=== PATIENT | male | born 1980 | race American Indian/Alaskan Native ===

== ENCOUNTER 2017-01-30 09:09 | Emergency (ER) | payer SELFPAY ==
[2017-01-30 09:34] VITALS: BP 122/77
== END 2017-01-30 09:29 | disposition left against medical advice (07) ==
LOC: ED 09:09
DX: R51 Headache (principal); R42 Dizziness and giddiness; Z53.21 Procedure and treatment not carried out due to patient leaving prior to being seen by health care provider

== ENCOUNTER 2017-01-30 13:33 | Emergency (ER) | payer SELFPAY ==
[2017-01-30 15:11] VITALS: BP 127/80
== END 2017-01-31 02:05 | disposition left against medical advice (07) ==
LOC: ED 13:33
DX: G43.909 Migraine, unspecified, not intractable, without status migrainosus (principal); Z53.21 Procedure and treatment not carried out due to patient leaving prior to being seen by health care provider

== ENCOUNTER 2017-02-06 03:32 | Emergency (ER) | payer SELFPAY ==
[2017-02-06] MEDS ORDERED: NACL 0.9% 1000 ML 1,000 ML ONE (04:02)
[2017-02-06] MEDS ORDERED: REGLAN ONE (04:02)
[2017-02-06] MEDS ORDERED: REGLAN IV ONE (04:11)
[2017-02-06] MEDS ORDERED: NACL 0.9% 500 ML 500 ML IV ONE (04:11)
--- NOTE | 2017-02-06 04:15 | Cat Scan Report ---
FINAL REPORT PROCEDURE: CT HEAD/BRAIN WO CON TECHNIQUE: Computerized tomography of the head was performed without contrast material. HISTORY: syncope 01:00, headache dizzy x 2 hrs COMPARISON: No prior studies are available for comparison. FINDINGS: Skull and scalp: Normal. Paranasal sinuses: Normal. Ventricles and subarachnoid spaces: Normal. Cerebrum: No evidence of hemorrhage, acute infarction or mass . Cerebellum and brainstem: No evidence of hemorrhage, acute infarction or mass. Vasculature: Normal. Comments: None. IMPRESSION: There is no evidence of an acute intracranial process
[2017-02-06] MEDS ORDERED: BENADRYL ONE (04:18)
[2017-02-06] MEDS ORDERED: BENADRYL IV ONE (04:27)
[2017-02-06 04:28] LABS: Basophils % (Auto) 0.8 % (0.0-1.8); Eosinophils % (Auto) 1.4 % (0.0-4.3); Hematocrit 42.9 % (35.5-45.6); Hemoglobin 14.4 gm/dl (11.8-15.2); Mean Corpuscular HGB Conc 34 % (32-34); Mean Corpuscular Hemoglobin 32 pg (28-32); Mean Corpuscular Volume 94 fl (84-94); Platelet Count 277 K/mm3 (140-440); Red Blood Count 4.56 M/mm3 (3.65-5.03); Red Cell Distribution Width 13.6 % (13.2-15.2)
[2017-02-06 04:40] LABS: INR 0.9 (0.87-1.13)
[2017-02-06 04:41] LABS: Partial Thromboplastin Time 25.9 Sec. (24.2-36.6)
[2017-02-06 05:15] LABS: Anion Gap 14 mmol/L; Blood Urea Nitrogen 7 mg/dL (9-20); Calcium 8.8 mg/dL (8.4-10.2); Carbon Dioxide 28 mmol/L (22-30); Glucose 102 mg/dL (75-100); Sodium 138 mmol/L (137-145)
--- NOTE | 2017-02-06 06:28 | Emergency Department Report ---
ED General Adult HPI - General Chief complaint: Syncope Stated complaint: HEADACHES, DIZZINESS, FAINT, Time Seen by Provider: 02/06/17 06:25 Source: patient Mode of arrival: Ambulatory Limitations: No Limitations - History of Present Illness Initial comments: the patient states he has headaches daily for years without neurological evaluation. He goes to EDs. His last visit was 01/30/17 but he did not wait to be seen. His headache today is not unusual. It is left-sided. It is aching. It is not associated with any neurological change photophobia fever or chills or neck stiffness. He is resting comfortably but would like something else for his headache. -: Gradual Location: head Radiation: non-radiation Severity scale (0 -10): 7 Quality: aching Consistency: intermittent Improves with: none Worsens with: none Associated Symptoms: denies other symptoms Treatments Prior to Arrival: none - Related Data Previous Rx's Medication Instructions Recorded Last Taken Type Ketorolac [Toradol] 10 mg PO Q6H PRN #20 tablet 05/02/16 Unknown Rx oxyCODONE [Roxicodone TAB] 5 mg PO Q6HR PRN #6 tablet 05/02/16 Unknown Rx traMADol [Ultram 50 MG tab] 50 mg PO Q6HR PRN #20 tablet 01/15/17 Unknown Rx Butalb/Acetaminophen/Caffeine 1 cap PO Q6HR PRN #14 cap 02/06/17 Unknown Rx [Fioricet 50-300-40 mg CAP] Allergies Allergy/AdvReac Type Severity Reaction Status Date / Time No Known Allergies Allergy Unverified 05/02/16 16:01 ED Review of Systems ROS: Stated complaint: HEADACHES, DIZZINESS, FAINT, Other details as noted in HPI Constitutional: denies: chills, fever Eyes: denies: eye pain, eye discharge, vision change ENT: denies: ear pain, throat pain Respiratory: denies: cough, shortness of breath, wheezing Cardiovascular: denies: chest pain, palpitations Endocrine: no symptoms reported Gastrointestinal: denies: abdominal pain, nausea, diarrhea Genitourinary: denies: urgency, dysuria Musculoskeletal: denies: back pain, joint swelling, arthralgia Skin: denies: rash, lesions Neurological: headache. denies: weakness, paresthesias Psychiatric: denies: anxiety, depression Hematological/Lymphatic: denies: easy bleeding, easy bruising ED Past Medical Hx - Past Medical History Previous Medical History?: Yes Additional medical history: ulcers "a long time ago". multiple shoulder dislocations - Surgical History Past Surgical History?: No - Social History Smoking Status: Current Every Day Smoker Substance Use Type: Alcohol - Medications Home Medications: Home Medications Medication Instructions Recorded Confirmed Last Taken Type Ketorolac [Toradol] 10 mg PO Q6H PRN #20 tablet 05/02/16 Unknown Rx oxyCODONE [Roxicodone TAB] 5 mg PO Q6HR PRN #6 tablet 05/02/16 Unknown Rx traMADol [Ultram 50 MG tab] 50 mg PO Q6HR PRN #20 tablet 01/15/17 Unknown Rx Butalb/Acetaminophen/Caffeine 1 cap PO Q6HR PRN #14 cap 02/06/17 Unknown Rx [Fioricet 50-300-40 mg CAP] ED Physical Exam - General Limitations: No Limitations General appearance: alert, in no apparent distress - Head Head exam: Present: atraumatic, normocephalic - Eye Eye exam: Present: normal appearance, PERRL. Absent: scleral icterus - ENT ENT exam: Present: normal exam, mucous membranes moist - Neck Neck exam: Present: normal inspection. Absent: tenderness, meningismus - Respiratory Respiratory exam: Present: normal lung sounds bilaterally. Absent: respiratory distress - Cardiovascular Cardiovascular Exam: Present: regular rate, normal rhythm. Absent: systolic murmur, diastolic murmur, rubs, gallop - GI/Abdominal GI/Abdominal exam: Present: soft, normal bowel sounds. Absent: distended, tenderness, guarding, rebound - Rectal Rectal exam: Present: deferred - Extremities Exam Extremities exam: Present: normal inspection - Back Exam Back exam: Present: normal inspection - Neurological Exam Neurological exam: Present: alert, oriented X3, CN II-XII intact, other ( cerebellar testing was normal). Absent: motor sensory deficit - Psychiatric Psychiatric exam: Present: normal affect, normal mood - Skin Skin exam: Present: warm, dry, intact, normal color. Absent: rash ED Course Vital Signs 02/06/17 03:35 Temperature 98.9 F Pulse Rate 53 L Respiratory 20 Rate Blood Pressure 128/76 [Right] O2 Sat by Pulse 100 Oximetry - Reevaluation(s) Reevaluation #1: The patient was noted to be in no distress. He has chronic shoulder dislocations with previous ED presentations. He will be given analgesia now and a referral to a neurologist for his chronic headache syndrome. 02/06/17 06:39 ED Medical Decision Making - Lab Data Result diagrams: 02/06/17 04:10 02/06/17 04:10 Laboratory Results - last 24 hr 02/06/17 02/06/17 02/06/17 04:10 04:10 04:10 WBC 11.0 RBC 4.56 Hgb 14.4 Hct 42.9 MCV 94 MCH 32 MCHC 34 RDW 13.6 Plt Count 277 Lymph % (Auto) 28.8 Peach % (Auto) 7.6 H Eos % (Auto) 1.4 Baso % (Auto) 0.8 Lymph # 3.2 [place] # 0.8 Eos # 0.2 Baso # 0.1 Seg Neutrophils % 61.4 Seg Neutrophils # 6.7 PT 12.1 L INR 0.90 APTT 25.9 Thrombin Time Sodium 138 Potassium 4.0 Chloride 100.0 Carbon Dioxide 28 Anion Gap 14 BUN 7 L Creatinine 0.7 L Estimated GFR > 60 BUN/Creatinine Ratio 10.00 Glucose 102 H Calcium 8.8 Troponin T < 0.010 02/06/17 04:10 WBC RBC Hgb Hct MCV MCH MCHC RDW Plt Count Lymph % (Auto) [place] % (Auto) Eos % (Auto) Baso % (Auto) Lymph # [place] # Eos # Baso # Seg Neutrophils % Seg Neutrophils # PT INR APTT Thrombin Time 16.9 Sodium Potassium Chloride Carbon Dioxide Anion Gap BUN Creatinine Estimated GFR BUN/Creatinine Ratio Glucose Calcium Troponin T - Radiology Data Radiology results: report reviewed interpreted by me: Normal CT per radiologist Critical care attestation.: If time is entered above; I have spent that time in minutes in the direct care of this critically ill patient, excluding procedure time. ED Disposition Clinical Impression: Cephalalgia Qualifiers: Headache type: unspecified Headache chronicity pattern: chronic headache Intractability: not intractable Qualified Code(s): R51 - Headache Disposition: DISCHARGED TO HOME OR SELFCARE Is pt being admited?: No Does the pt Need Aspirin: No Condition: Stable Instructions: Acute Headache (ED) Additional Instructions: Follow-up with her neurologist is recommended. See referral. Return any acute change or problem. Rx as needed for headache. Prescriptions: Butalb/Acetaminophen/Caffeine [Fioricet 50-300-40 mg CAP] 1 cap PO Q6HR PRN #14 cap PRN Reason: Headache Referrals: PRIMARY CARE, [Primary Care Provider] - 3-5 Days ELIAS ANTONIO MD [Staff Physician] - 2-3 Days Time of Disposition: 06:40
[2017-02-06] MEDS ORDERED: ZOFRAN IV ONE (06:43)
[2017-02-06] MEDS ORDERED: MORPHINE IV ONE (06:43)
[2017-02-06] MEDS ORDERED: TORADOL IV ONE (06:43)
[2017-02-06 07:22] VITALS: BP 123/71
== END 2017-02-06 07:22 | disposition home or self-care (01) ==
LOC: ED 03:32
DX: R51 Headache (principal); F17.200 Nicotine dependence, unspecified, uncomplicated
CPT/HCPCS: 36415; 70450; 80048; 84484; 85025; 85610; 85670; 85730; 93005; 93010; 96361; 96374; 96375; 99284; J1200; J1885; J2270; J2405; J2765; J7030

== ENCOUNTER 2017-03-26 18:14 | Emergency (ER) | payer SELFPAY | END 2017-03-26 19:00 | disposition left against medical advice (07) | LOC: ED 18:14 | DX: M25.562 Pain in left knee (principal); Z53.21 Procedure and treatment not carried out due to patient leaving prior to being seen by health care provider ==

== ENCOUNTER 2018-01-27 15:36 | Emergency (ER) | payer SELFPAY | END 2018-01-27 18:00 | disposition left against medical advice (07) | LOC: ED 15:36 | DX: M25.519 Pain in unspecified shoulder (principal); Z53.21 Procedure and treatment not carried out due to patient leaving prior to being seen by health care provider ==

== ENCOUNTER 2018-08-06 12:53 | Emergency (ER) | payer OTHER ==
--- NOTE | 2018-08-06 14:44 | XRay Report ---
LEFT KNEE, 3 views: History: Pain, edema The bony architecture is intact without evidence of fracture or dislocation. No significant soft tissue abnormality is seen. IMPRESSION: Left knee within normal limits.
--- NOTE | 2018-08-06 16:09 | Emergency Department Report ---
ED Neck Pain/Injury HPI - General Chief Complaint: Neck Pain/Injury Stated Complaint: CHEST PAIN Time Seen by Provider: 08/06/18 15:42 Mode of arrival: Ambulatory Limitations: No Limitations - History of Present Illness Initial Comments: 37-year-old male with left neck pain 1 week. States pain is radiating into the right arm. States pain is associated with numbness and tingling sensation and right forearm and right hand. Worse with rightward rotation of neck. Patient denies injury. Denies fever. Patient also reports left knee pain 1 month. Denies injury to the knee. States he feels a popping sensation with flexion and extension of the left knee. Reports mild swelling. MD Complaint: neck pain -: Gradual, week(s) (1) Radiation: right shoulder, right upper extremity Severity: moderate Quality: sharp Consistency: intermittent Improves With: remaining still Worsens With: movement of neck Context: unknown Associated Symptoms: tingling. denies: headache, fever, weakness, nausea, vomiting - Related Data Previous Rx's Medication Instructions Recorded Last Taken Type Ketorolac [Toradol] 10 mg PO Q6H PRN #20 tablet 05/02/16 Unknown Rx oxyCODONE [Roxicodone TAB] 5 mg PO Q6HR PRN #6 tablet 05/02/16 Unknown Rx traMADol [Ultram 50 MG tab] 50 mg PO Q6HR PRN #20 tablet 01/15/17 Unknown Rx Butalb/Acetaminophen/Caffeine 1 cap PO Q6HR PRN #14 cap 02/06/17 Unknown Rx [Fioricet 50-300-40 mg CAP] Methocarbamol [Robaxin-750] 750 mg PO Q6HR PRN #20 tablet 08/06/18 Unknown Rx Naproxen [Naprosyn] 500 mg PO BID #20 tablet 08/06/18 Unknown Rx predniSONE [Prednisone] 50 mg PO DAILY #5 tablet 08/06/18 Unknown Rx traMADol [Ultram] 50 mg PO Q6HR PRN #7 tablet 08/06/18 Unknown Rx Allergies Allergy/AdvReac Type Severity Reaction Status Date / Time No Known Allergies Allergy Unverified 05/02/16 16:01 ED Review of Systems ROS: Stated complaint: CHEST PAIN Other details as noted in HPI Comment: All other systems reviewed and negative Constitutional: denies: chills, fever Musculoskeletal: other (reports neck pain) Neurological: paresthesias. denies: headache, weakness ED Past Medical Hx - Past Medical History Previous Medical History?: No Additional medical history: ulcers "a long time ago". multiple shoulder dislocations - Surgical History Past Surgical History?: No - Social History Smoking Status: Current Every Day Smoker Substance Use Type: None - Medications Home Medications: Home Medications Medication Instructions Recorded Confirmed Last Taken Type Ketorolac [Toradol] 10 mg PO Q6H PRN #20 tablet 05/02/16 Unknown Rx oxyCODONE [Roxicodone TAB] 5 mg PO Q6HR PRN #6 tablet 05/02/16 Unknown Rx traMADol [Ultram 50 MG tab] 50 mg PO Q6HR PRN #20 tablet 01/15/17 Unknown Rx Butalb/Acetaminophen/Caffeine 1 cap PO Q6HR PRN #14 cap 02/06/17 Unknown Rx [Fioricet 50-300-40 mg CAP] Methocarbamol [Robaxin-750] 750 mg PO Q6HR PRN #20 tablet 08/06/18 Unknown Rx Naproxen [Naprosyn] 500 mg PO BID #20 tablet 08/06/18 Unknown Rx predniSONE [Prednisone] 50 mg PO DAILY #5 tablet 08/06/18 Unknown Rx traMADol [Ultram] 50 mg PO Q6HR PRN #7 tablet 08/06/18 Unknown Rx ED Physical Exam - General Limitations: No Limitations General appearance: alert, in no apparent distress - Head Head exam: Present: atraumatic, normocephalic - Eye Eye exam: Present: normal appearance - ENT ENT exam: Present: mucous membranes moist - Neck Neck exam: Present: normal inspection, full ROM. Absent: tenderness, meningismus - Respiratory Respiratory exam: Present: normal lung sounds bilaterally. Absent: respiratory distress - Cardiovascular Cardiovascular Exam: Present: regular rate, normal rhythm - GI/Abdominal GI/Abdominal exam: Present: soft. Absent: tenderness - Extremities Exam Extremities exam: Present: normal inspection, other (left knee: no obvious swelling, ROM intact, no tenderness with palpation; right arm: no swelling present, radial pulse nml, cap refilll in fingers nml, strength 5/5, tingling sensation present) - Back Exam Back exam: Present: normal inspection - Neurological Exam Neurological exam: Present: alert, oriented X3, motor sensory deficit (tingling sensation in RUE). Absent: CN II-XII intact - Psychiatric Psychiatric exam: Present: normal affect, normal mood - Skin Skin exam: Present: warm, dry, intact, normal color ED Course Vital Signs 08/06/18 13:40 Temperature 99.1 F Pulse Rate 71 Respiratory 16 Rate Blood Pressure 132/84 O2 Sat by Pulse 100 Oximetry ED Medical Decision Making - Medical Decision Making 37-year-old male with left knee pain times one month and neck pain 1 week. Patient exhibits signs of cervical radiculopathy in right arm. Will prescribe an anti-inflammatory, muscle relaxer, steroids. Return precautions given. Patient advised to follow-up with orthopedic - Differential Diagnosis arthritis, radiculopathy, bulging disc Critical care attestation.: If time is entered above; I have spent that time in minutes in the direct care of this critically ill patient, excluding procedure time. ED Disposition Clinical Impression: Cervical radiculopathy, Left knee pain Disposition: TO HOME OR SELFCARE Is pt being admited?: No Condition: Stable Instructions: Cervical Radiculopathy (ED), Knee Pain (ED), Arthralgia (ED) Prescriptions: Methocarbamol [Robaxin-750] 750 mg PO Q6HR PRN #20 tablet PRN Reason: Spasms Naproxen [Naprosyn] 500 mg PO BID #20 tablet predniSONE [Prednisone] 50 mg PO DAILY #5 tablet traMADol [Ultram] 50 mg PO Q6HR PRN #7 tablet PRN Reason: Pain Referrals: PRIMARY CARE, [Primary Care Provider] - 3-5 Days Time of Disposition: 16:12
[2018-08-06 16:28] VITALS: BP 118/83
== END 2018-08-06 16:27 | disposition home or self-care (01) ==
LOC: ED 12:53
DX: M54.12 Radiculopathy, cervical region (principal); M25.562 Pain in left knee; R22.42 Localized swelling, mass and lump, left lower limb; F17.200 Nicotine dependence, unspecified, uncomplicated; Z79.899 Other long term (current) drug therapy
CPT/HCPCS: 93005; 93010; 99283

== ENCOUNTER 2020-02-27 15:46 | Emergency (ER) | payer OTHER ==
[2020-02-27 16:20] VITALS: BP 140/92
[2020-02-27] MEDS ORDERED: diphenhydrAMINE 50 MG/ML VIAL IV ONE (17:22)
[2020-02-27] MEDS ORDERED: METOCLOPRAMIDE 10 MG/2 ML INJ IV ONE (17:22)
[2020-02-27] MEDS ORDERED: SODIUM CHLORIDE 0.9% 1000 ML 1,000 ML IV ONE (17:22)
--- NOTE | 2020-02-27 17:22 | Cat Scan Report ---
CT head/brain wo con INDICATION / CLINICAL INFORMATION: 39 years Male; headache. TECHNIQUE: Routine CT head without contrast. All CT scans at this location are performed using CT dos e reduction for ALARA by means of automated exposure control. COMPARISON: Prior - 02/06/2017 FINDINGS: BRAIN / INTRACRANIAL CONTENTS: No acute hemorrhage, mass effect, midline shift, hydrocephalus, or acu te, large territorial infarct. No chronic infarct or atrophy appreciated. No significant white matter abnormality. CRANIOCERVICAL JUNCTION: No significant abnormality. ORBITS: No significant abnormality of visualized orbits. SINUSES / MASTOIDS: Moderate mucosal thickening seen in the right sphenoid sinus. Desiccated secretio ns noted as well. ADDITIONAL FINDINGS: Prominent soft tissue is seen in the roof the nasopharynx, presumably related to reactive adenoidal tissue. Please clinically correlate. IMPRESSION: 1. No focal mass, hemorrhage, hydrocephalus, or acute, large territorial infarct. Signer Name: Trenton Kingston MD, III Signed: 02/27/2020 5:18 PM Workstation Name: [id number]
[2020-02-27] MEDS ORDERED: KETOROLAC 30 MG/1 ML INJ IV ONE (17:24)
--- NOTE | 2020-02-27 17:30 | Emergency Department Report ---
ED Headache HPI - General Chief Complaint: Headache Stated Complaint: NASAL DRAINAGE/HEAD PAIN Time Seen by Provider: 02/27/20 16:57 - History of Present Illness Initial Comments: This is a 39-year-old male nontoxic, well nourished in appearance, no acute signs of distress presents to the ED with c/o of acute on chronic headache x5 months. Patient describes headache as diffuse with level of 8 out of 10. Patient denies thunderclap headache. Patient denies any radiation of pain. Patient denies any head trauma. Patient denies any visual changes. Patient denies worse headache. Patient stated that darkness makes headache better and bright lights make the headache worse. Patient denies any numbness, tingling, fever, chills, nausea, vomiting, chest pain, shortness of breath, stiff neck. Patient denies facial drooping or one sided weakness. Patient denies any radiation of pain. Patient denies any allergies. Past medical history includes migraine headaches. Timing/Duration: episodic Quality: mild, achy Head Injury Location: other (diffuse) Recent Head Trauma: no recent headache/trauma Associated Symptoms: denies symptoms. denies: confusion, fatigue, facial pain, fever/chills, flushing, loss of consciousness, nausea/vomiting, nasal congestion, nasal drainage, numbness in legs/feet, rash, seizures, sinus infection, stiff neck, vision changes, weakness Allergies/Adverse Reactions: Allergies No Known Allergies Allergy (Unverified 05/02/16 16:01) Home Medications: Ambulatory Orders Ketorolac [Toradol] 10 mg PO Q6H PRN #20 tablet 05/02/16 oxyCODONE [roxiCODONE] 5 mg PO Q6HR PRN #6 tablet 05/02/16 traMADoL [Ultram 50 MG tab] 50 mg PO Q6HR PRN #20 tablet 01/15/17 Butalb/Acetaminophen/Caffeine [Fioricet 50-300-40 mg CAP] 1 cap PO Q6HR PRN #14 cap 02/06/17 Methocarbamol [Robaxin-750] 750 mg PO Q6HR PRN #20 tablet 08/06/18 Naproxen [Naprosyn] 500 mg PO BID #20 tablet 08/06/18 predniSONE [Prednisone] 50 mg PO DAILY #5 tablet 08/06/18 traMADoL [Ultram] 50 mg PO Q6HR PRN #7 tablet 08/06/18 Butalb/Acetaminophen/Caffeine [Fioricet 50-300-40 mg CAP] 1 cap PO Q6HR PRN #12 cap 02/27/20 ED Review of Systems ROS: Stated complaint: NASAL DRAINAGE/HEAD PAIN Other details as noted in HPI Constitutional: denies: chills, fever Eyes: denies: eye pain, eye discharge, vision change ENT: denies: ear pain, throat pain Respiratory: denies: cough, shortness of breath, wheezing Cardiovascular: denies: chest pain, palpitations Endocrine: no symptoms reported Gastrointestinal: denies: abdominal pain, nausea, diarrhea Genitourinary: denies: urgency, dysuria Musculoskeletal: denies: back pain, joint swelling, arthralgia Skin: denies: rash, lesions Neurological: headache. denies: weakness, paresthesias Psychiatric: denies: anxiety, depression Hematological/Lymphatic: denies: easy bleeding, easy bruising ED Past Medical Hx - Past Medical History Previous Medical History?: Yes Additional medical history: Gastric ulcers - Surgical History Past Surgical History?: No - Social History Smoking Status: Current Every Day Smoker Substance Use Type: Alcohol, Marijuana - Medications Home Medications: Home Medications Medication Instructions Recorded Confirmed Last Taken Type Ketorolac [Toradol] 10 mg PO Q6H PRN #20 tablet 05/02/16 Unknown Rx oxyCODONE [roxiCODONE] 5 mg PO Q6HR PRN #6 tablet 05/02/16 Unknown Rx traMADoL [Ultram 50 MG tab] 50 mg PO Q6HR PRN #20 tablet 01/15/17 Unknown Rx Butalb/Acetaminophen/Caffeine 1 cap PO Q6HR PRN #14 cap 02/06/17 Unknown Rx [Fioricet 50-300-40 mg CAP] Methocarbamol [Robaxin-750] 750 mg PO Q6HR PRN #20 tablet 08/06/18 Unknown Rx Naproxen [Naprosyn] 500 mg PO BID #20 tablet 08/06/18 Unknown Rx predniSONE [Prednisone] 50 mg PO DAILY #5 tablet 08/06/18 Unknown Rx traMADoL [Ultram] 50 mg PO Q6HR PRN #7 tablet 08/06/18 Unknown Rx Butalb/Acetaminophen/Caffeine 1 cap PO Q6HR PRN #12 cap 02/27/20 Unknown Rx [Fioricet 50-300-40 mg CAP] ED Physical Exam - General Limitations: No Limitations General appearance: alert, in no apparent distress - Head Head exam: Present: atraumatic, normocephalic - Eye Eye exam: Present: normal appearance, PERRL, EOMI - Neck Neck exam: Present: normal inspection, full ROM. Absent: tenderness, meningismus, lymphadenopathy - Extremities Exam Extremities exam: Present: normal inspection, full ROM - Back Exam Back exam: Present: normal inspection, full ROM. Absent: tenderness, CVA tenderness (R), CVA tenderness (L), muscle spasm, paraspinal tenderness, vertebral tenderness, rash noted - Neurological Exam Neurological exam: Present: alert, oriented X3, normal gait - Expanded Neurological Exam Expanded Patient oriented to: Present: person, place, time Cranial nerves: EOM's Intact: Normal, Facial Sensation: Normal Cerebellar function: Finger to Nose: Normal Upper motor neuron: Pronator Drift: Normal, Sensory Extinction: Normal Motor strength exam: RUE: 5, LUE: 5, RLE: 5, LLE: 5 Best Eye Response ([place]): (4) open spontaneously Best Motor Response ([place]): (6) obeys commands Best Verbal Response ([place]): (5) oriented [place] Total: 15 - Psychiatric Psychiatric exam: Present: normal affect, normal mood - Skin Skin exam: Present: warm, dry, intact, normal color. Absent: rash ED Course Vital Signs 02/27/20 16:19 Temperature 98.4 F Pulse Rate 88 Respiratory 20 Rate Blood Pressure 140/92 O2 Sat by Pulse 99 Oximetry - Reevaluation(s) Reevaluation #1: 02/27/20 17:30 Patient is speaking in full sentences with no signs of distress noted. ED Medical Decision Making - Medical Decision Making This is a 39-year-old male that presents with headache. Patient is stable and was examined by me. Patient is neurologically stable. There is no stiff neck or neck pain. Vital signs are stable. CT scan of head is unremarkable and dictated by radiologist. Patient is notified of the CT results with no questions noted by the patient. Patient is afebrile. Patient received Benadryl, Reglan, Toradol, and 1 L of normal saline which the patient stated that headache has subsided and resolved. Patient was instructed not to operate any machinery after discharged due to drowsiness of Benadryl. Patient stated that a family member will drive patient home. Patient is discharged with Fioricet. Patient was referred to Follow-up with a primary care/neurologist doctor in 3-5 days or if symptoms worsen and continue return to emergency room as soon as possible. At time of discharge, the patient does not seem toxic or ill in appearance. No acute signs of distress noted. Patient agrees to discharge treatment plan of care. No further questions noted by the patient. Critical care attestation.: If time is entered above; I have spent that time in minutes in the direct care of this critically ill patient, excluding procedure time. ED Disposition Clinical Impression: Chronic headache Qualifiers: Headache type: unspecified Intractability: not intractable Qualified Code(s): R51 - Headache Disposition: DC-01 TO HOME OR SELFCARE Is pt being admited?: No Does the pt Need Aspirin: No Condition: Stable Instructions: Acute Headache (ED) Additional Instructions: Follow-up with a primary care doctor in 3-5 days or if symptoms worsen and continue return to emergency room as soon as possible. Prescriptions: Butalb/Acetaminophen/Caffeine [Fioricet 50-300-40 mg CAP] 1 cap PO Q6HR PRN #12 cap PRN Reason: Pain , Severe (7-10) Referrals: PRIMARY MD JACINTO [Primary Care Provider] - 3-5 Days MATTHEW GARCIA MD [Staff Physician] - 3-5 Days [facility] [Provider Group] - 3-5 Days Forms: Work/School Release Form(ED)
== END 2020-02-27 18:12 | disposition home or self-care (01) ==
LOC: ED 15:46
DX: R51 Headache (principal); G89.29 Other chronic pain; F17.200 Nicotine dependence, unspecified, uncomplicated; F12.10 Cannabis abuse, uncomplicated; Z79.899 Other long term (current) drug therapy
CPT/HCPCS: 70450; 96374; 96375; 99283; J1200; J1885; J2765; J7030

== ENCOUNTER 2020-10-14 03:21 | Emergency (ER) | payer SELFPAY | END 2020-10-14 04:56 | disposition left against medical advice (07) | LOC: ED 03:21 | DX: R51.9 Headache, unspecified (principal); Z53.21 Procedure and treatment not carried out due to patient leaving prior to being seen by health care provider ==